=== PATIENT | female | born 1970 | race Two or more races ===

== ENCOUNTER → 2017-06-22 | Outpatient (CLI) | payer OTHER | END | disposition home or self-care (01) | LOC: PPHC LAB 08:10 | DX: Z02.0 Encounter for examination for admission to educational institution (principal) ==

== ENCOUNTER → 2017-07-04 | Outpatient (CLI) | payer OTHER | END | disposition home or self-care (01) | LOC: PPH VACUNA 07:28 | DX: Z23 Encounter for immunization (principal) ==

== ENCOUNTER → 2019-07-30 | Emergency (ER) | payer OTHER ==
[~2019-07-30] VITALS: Ht 157.5 cm; Wt 63.0 kg
[~2019-07-30] MED LIST: AIRBORNE EFFER1 EACH PO; MUCINEX DM ER1 EAC1 PO; PEPCID AC20 MG; TESSALON PERLE100 M1 PO
== END | disposition home or self-care (01) ==
LOC: ER 06:02
DX: B34.9 Viral infection, unspecified (principal)

== ENCOUNTER 2019-11-06 06:12 | Outpatient (CLI) | payer OTHER | END 2019-11-06 06:17 | disposition home or self-care (01) | LOC: LAB 06:12 | PROVIDERS: ATTEND General Practice | DX: J11.1 Influenza due to unidentified influenza virus with other respiratory manifestations (principal); R51 Headache; R53.81 Other malaise; Z20.828 Contact with and (suspected) exposure to other viral communicable diseases; Z12.31 Encounter for screening mammogram for malignant neoplasm of breast; Z13.6 Encounter for screening for cardiovascular disorders; R03.0 Elevated blood-pressure reading, without diagnosis of hypertension ==

== ENCOUNTER 2019-11-06 07:03 | Outpatient (CLI) | payer OTHER | END 2019-11-06 07:14 | disposition home or self-care (01) | LOC: RAD 07:03 | PROVIDERS: ATTEND General Practice | DX: M25.512 Pain in left shoulder (principal); Z12.31 Encounter for screening mammogram for malignant neoplasm of breast ==

== ENCOUNTER 2020-02-05 16:49 | Outpatient (CLI) | payer OTHER ==
[~2020-02-05 16:49] MED LIST changes: +KETO10TA2 PO; +ZANAFLEX2 MG PO
== END 2020-02-05 16:50 | disposition home or self-care (01) ==
LOC: PPH VACUNA 16:49
DX: Z23 Encounter for immunization (principal)

== ENCOUNTER → 2020-02-06 07:02 | Outpatient (CLI) | payer OTHER | END | disposition home or self-care (01) | LOC: LAB 07:02 | DX: I10 Essential (primary) hypertension (principal) ==

== ENCOUNTER 2020-02-27 11:26 | Outpatient (CLI) | payer OTHER | END 2020-02-27 11:31 | disposition home or self-care (01) | LOC: RAD 11:26 | PROVIDERS: ATTEND Physical Medicine & Rehabilitation | DX: M54.5 Low back pain (principal); M54.2 Cervicalgia; M54.6 Pain in thoracic spine ==

== ENCOUNTER → 2020-02-27 12:08 | Outpatient (CLI) | payer OTHER | END | disposition home or self-care (01) | LOC: LAB 12:08 | PROVIDERS: ATTEND Physical Medicine & Rehabilitation | DX: Z20.828 Contact with and (suspected) exposure to other viral communicable diseases (principal); R50.9 Fever, unspecified ==

== ENCOUNTER 2020-03-12 07:13 | Outpatient (CLI) | payer OTHER | END 2020-03-12 07:15 | disposition home or self-care (01) | LOC: SONOGRAMA 07:13 → MAMO-SONO 08:15 | PROVIDERS: ATTEND Physical Medicine & Rehabilitation | DX: M77.11 Lateral epicondylitis, right elbow (principal); M77.12 Lateral epicondylitis, left elbow ==

== ENCOUNTER → 2020-04-02 12:14 | Outpatient (CLI) | payer OTHER ==
[~2020-04-02 12:14] MED LIST changes: +PROTONIX40 MG PO
== END | disposition home or self-care (01) ==
LOC: LAB 12:14
PROVIDERS: ATTEND Physical Medicine & Rehabilitation
DX: Z20.828 Contact with and (suspected) exposure to other viral communicable diseases (principal); R50.9 Fever, unspecified